=== PATIENT | female | born 1980 | race Caucasian/White ===

== ENCOUNTER 2019-12-26 16:37 | Emergency (ER) | payer MEDICAID, OTHER, SELFPAY ==
[~2019-12-26] VITALS: Ht 157.5 cm; Wt 126.6 kg
[2019-12-26 16:40] VITALS: BP 177/122
--- NOTE | 2019-12-26 17:05 | NUR ---
SHRIMP TRAWLER: PT TO ROOM FROM LOBBY
[2019-12-26] MEDS ORDERED: HYDROcodone/APAP 5/325 TABLET ONE (17:29)
[2019-12-26] MEDS ORDERED: HYDROcodone/APAP 5/325 TABLET PO ONE (17:30)
--- NOTE | 2019-12-26 17:32 | NUR ---
MEDS ADMIN PER SEP.
== END 2019-12-26 18:09 | disposition home or self-care (01) ==
LOC: ED 17:55
DX: K08.89 Other specified disorders of teeth and supporting structures (principal); F17.200 Nicotine dependence, unspecified, uncomplicated
CPT/HCPCS: 99283

== ENCOUNTER 2020-03-12 14:50 | Emergency (ER) | payer MEDICAID ==
[~2020-03-12] VITALS: Ht 157.5 cm; Wt 125.9 kg
[2020-03-12 14:54] VITALS: BP 156/91
--- NOTE | 2020-03-12 15:05 | NUR ---
PT HAS CO VAG BLEEDING. 10-15 PADS/DAY. PT STATES HE HAS BEEN BLEEDING FOR 25 DAYS. CRAMPS PRESENT. PAIN 12/24. PT DENIES DIZZINES, OR CP. PT STATES SHE MISSED PERIOD LAT 2 MONTHS W SPOTTING. PERIODS ARE USUALLY NORMAL.
[2020-03-12] MEDS ORDERED: ONDANSETRON ODT 4 MG ONE (15:17)
--- NOTE | 2020-03-12 15:19 | NUR ---
MEDICATED FOR NAUSEA. LAB AT BEDSIDE. PT AWARE NEED FOR UA
[2020-03-12] MEDS ORDERED: ONDANSETRON ODT 4 MG PO ONE (15:30)
[2020-03-12 15:34] LABS: BASOPHILS # (AUTO) 0.05 x10^3/uL (0-0.1); BASOPHILS % (AUTO) 1 % (0-1); EOSINOPHILS # (AUTO) 0.04 x10^3/uL (0-0.4); EOSINOPHILS % (AUTO) 0 % (1-7); LYMPHOCYTES # (AUTO) 2.23 x10^3/uL (1-3.4); LYMPHOCYTES % (AUTO) 23 % (22-44); MD NO; MEAN CORPUSCULAR HEMOGLOBIN 28.7 pg (27.0-34.8); MEAN CORPUSCULAR HGB CONC 32.1 g/dL (32.4-35.8); MEAN CORPUSCULAR VOLUME 89.5 fL (80-100); MEAN PLATELET VOLUME 7.2 fL (7.4-10.4); MONOCYTES # (AUTO) 0.52 x10^3/uL (0.2-0.8); MONOCYTES % (AUTO) 5 % (2-9); NEUTROPHILS # (AUTO) 6.96 x10^3/uL (1.8-6.8); NEUTROPHILS % (AUTO) 71 % (42-75); PLATELET COUNT 345 x10^3/uL (130-400); RED BLOOD COUNT 3.34 x10^6/uL (3.82-5.3); RED CELL DISTRIBUTION WIDTH 16.6 % (9.6-15.2)
[2020-03-12 15:41] LABS: ALBUMIN 3.3 g/dL (3.4-5.0); ANION GAP 7 mmol/L (5-15); CALCIUM 8.2 mg/dL (8.5-10.1); CHLORIDE 109 mmol/L (98-107)
[2020-03-12 15:47] LABS: CREATININE 0.77 mg/dL (0.55-1.02)
--- NOTE | 2020-03-12 16:04 | NUR ---
pt in [place]
--- NOTE | 2020-03-12 16:53 | NUR ---
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
--- NOTE | 2020-03-12 17:16 | NUR ---
Patient/Caregiver given discharge instructions and they have confirmed that they understand the instructions. Patient ambulatory with steady gait.
== END 2020-03-12 17:18 | disposition home or self-care (01) ==
LOC: ED 15:03
DX: N93.8 Other specified abnormal uterine and vaginal bleeding (principal); D64.9 Anemia, unspecified; R10.9 Unspecified abdominal pain; F17.200 Nicotine dependence, unspecified, uncomplicated; Z98.51 Tubal ligation status
CPT/HCPCS: 36415; 76830; 80048; 82040; 84703; 85025; 99284; Q0162

== ENCOUNTER 2020-05-07 08:11 | Emergency (ER) | payer MEDICAID ==
[~2020-05-07] VITALS: Ht 157.5 cm; Wt 124.0 kg
[2020-05-07 09:18] LABS: BASOPHILS % (AUTO) 1 % (0-1); EOSINOPHILS % (AUTO) 1 % (1-7); LYMPHOCYTES % (AUTO) 23 % (22-44); MEAN CORPUSCULAR HEMOGLOBIN 23.9 pg (27.0-34.8); MEAN CORPUSCULAR HGB CONC 30.7 g/dL (32.4-35.8); MEAN PLATELET VOLUME 6.9 fL (7.4-10.4); MONOCYTES % (AUTO) 7 % (2-9); NEUTROPHILS % (AUTO) 69 % (42-75); PLATELET COUNT 374 x10^3/uL (130-400); RED BLOOD COUNT 4.07 x10^6/uL (3.82-5.3); RED CELL DISTRIBUTION WIDTH 19.6 % (9.6-15.2)
[2020-05-07 09:30] LABS: ALANINE AMINOTRANSFERASE 28 U/L (12-78); ALBUMIN 3.1 g/dL (3.4-5.0); ANION GAP 8 mmol/L (5-15); CALCIUM 8.7 mg/dL (8.5-10.1); CHLORIDE 111 mmol/L (98-107); CREATININE 0.78 mg/dL (0.55-1.02)
[2020-05-07 09:34] LABS: ALKALINE PHOSPHATASE 101 U/L (45-117); BILIRUBIN,TOTAL 0.3 mg/dL (0.2-1.0); TOTAL PROTEIN 7.2 g/dL (6.4-8.2)
[2020-05-07 09:37] LABS: MD NO
--- NOTE | 2020-05-07 09:52 | NUR ---
FUNERAL SERVICE APPRENTICE: PT TO ROOM FROM [facility]
--- NOTE | 2020-05-07 09:54 | NUR ---
FEVER UP TO 101 AT NIGHT X 3 DAYS. MUSCLE ACHES, INTERMITTENT SOB (NONE NOW), NO SENSE OF SMELL AND ALL FOOD TASTE "LIKE FISH" APPEARS WELL, ROOM AIR POX 95%, AFEBRILE (NO NSAIDS TODAY) DROPLET PLUS PRECAUTIONS PLACED, ON POX/HOURLY NIBP UPDATED ON ESTIMATED POX
--- NOTE | 2020-05-07 10:15 | NUR ---
UA WALKED TO LAB
[2020-05-07 10:50] VITALS: BP 190/105
--- NOTE | 2020-05-07 10:51 | NUR ---
ASSISTING PRIMARY RN. BP CUFF, PULSE OX PLACED. VS UPDATED IN COMPUTER. PT REPORTS PAIN AT 7/10 "MIGRAINE" WITH NAUSEA, NO EMESIS. CHART REVIEWED, AWAITING UA RESULTS.
--- NOTE | 2020-05-07 11:00 | NUR ---
ASSUMED CARE OF PT AT THIS TIME
[2020-05-07 11:05] LABS: MICROSCOPIC INDICATED
== END 2020-05-07 12:43 | disposition home or self-care (01) ==
LOC: ED 10:25
DX: N30.00 Acute cystitis without hematuria (principal); Z20.828 Contact with and (suspected) exposure to other viral communicable diseases; F17.210 Nicotine dependence, cigarettes, uncomplicated
CPT/HCPCS: 36415; 71045; 80053; 81001; 84703; 85025; 87086; 87635; 99284; 99406

== ENCOUNTER 2020-12-16 19:43 | Emergency (ER) | payer MEDICAID ==
[~2020-12-16] VITALS: Ht 157.5 cm; Wt 130.5 kg
--- NOTE | 2020-12-16 20:07 | NUR ---
PT C/O OF SOB, VOMITING, LOSS OF TASTE AND SMELL, AND PAIN IN RT CHEST FROM COUGHING. PT BELIEVED SHE HAS ALLERGIES TWO DAYS AGO WHICH HAS BEGUN TO GET A LOT WORSE TODAY. DENIES CONTACT WITH COVID POSITIVE PEOPLE. HAS NOT HAD VACCINE. 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 BP AND HR ELEVATED. BED IN LOW POSITION. DAUGHTER AT BEDSIDE. CALL LIGHT WITHIN REACH. TM
[2020-12-16 21:16] LABS: BASOPHILS % (AUTO) 1 % (0-1); EOSINOPHILS % (AUTO) 2 % (1-7); LYMPHOCYTES % (AUTO) 20 % (22-44); MEAN CORPUSCULAR HEMOGLOBIN 25.1 pg (27.0-34.8); MEAN CORPUSCULAR HGB CONC 31.9 g/dL (32.4-35.8); MEAN PLATELET VOLUME 7.7 fL (7.4-10.4); MONOCYTES % (AUTO) 7 % (2-9); NEUTROPHILS % (AUTO) 70 % (42-75); PLATELET COUNT 306 x10^3/uL (130-400); RED BLOOD COUNT 4.84 x10^6/uL (3.82-5.3); RED CELL DISTRIBUTION WIDTH 21.4 % (9.6-15.2)
[2020-12-16 21:27] LABS: ALANINE AMINOTRANSFERASE 26 U/L (12-78); ALBUMIN 3.2 g/dL (3.4-5.0); ANION GAP 9 mmol/L (5-15); CALCIUM 8.6 mg/dL (8.5-10.1); CHLORIDE 110 mmol/L (98-107); CREATININE 0.76 mg/dL (0.55-1.02)
[2020-12-16 21:30] LABS: ALKALINE PHOSPHATASE 89 U/L (45-117); BILIRUBIN,TOTAL 0.2 mg/dL (0.2-1.0); TOTAL PROTEIN 7.1 g/dL (6.4-8.2)
[2020-12-16 21:40] LABS: MD MORPH REVIEW ONLY
[2020-12-16 21:41] LABS: ANISOCYTOSIS 1+; MICROCYTOSIS 1+
[2020-12-16 21:42] LABS: <PLATELET ESTIMATE> ADEQUATE; <PLT MORPHOLOGY> NORMAL PLT MORPH
--- NOTE | 2020-12-16 21:47 | NUR ---
PT AMBULATED TO BATHROOM AND BACK. TOLERATED WELL. BACK IN BED. ATTACHED TO MONITORS. VSS. PT FEELING A LOT BETTER. PT IN NAD. WCTM
--- NOTE | 2020-12-16 22:26 | NUR ---
PT REFUSED COVID 19 TEST.
[2020-12-16 22:29] VITALS: BP 145/81
--- NOTE | 2020-12-16 22:49 | NUR ---
Patient/Caregiver given discharge instructions and they have confirmed that they understand the instructions. Patient ambulatory with steady gait. NAD, all questions answered appropriately, denies additional needs at this time. No personal belongings left in room after discharge.
== END 2020-12-16 22:50 | disposition home or self-care (01) ==
LOC: ED 20:03
DX: J20.9 Acute bronchitis, unspecified (principal); R50.9 Fever, unspecified; F17.210 Nicotine dependence, cigarettes, uncomplicated; R00.0 Tachycardia, unspecified
CPT/HCPCS: 36415; 71045; 80053; 83605; 84145; 85025; 87040; 93005; 99285